=== PATIENT | male | born 1940 | race African-American/Black ===

== ENCOUNTER 2017-06-22 13:11 | Emergency (ER) | payer OTHER ==
[~2017-06-22] VITALS: Ht 188 cm; Wt 96.7 kg
[2017-06-22 13:22] VITALS: BP 156/82
== END 2017-06-22 14:01 | disposition home or self-care (01) ==
LOC: ED 13:11
DX: S83.92XA Sprain of unspecified site of left knee, initial encounter (principal); S83.91XA Sprain of unspecified site of right knee, initial encounter; I10 Essential (primary) hypertension; E11.9 Type 2 diabetes mellitus without complications; Z86.79 Personal history of other diseases of the circulatory system; Z79.84 Long term (current) use of oral hypoglycemic drugs; Z79.899 Other long term (current) drug therapy; X58.XXXA Exposure to other specified factors, initial encounter; Y99.8 Other external cause status; Y93.89 Activity, other specified; Y92.89 Other specified places as the place of occurrence of the external cause